=== PATIENT | female | born 1980 | race American Indian/Alaskan Native ===

== ENCOUNTER 2021-08-01 23:49 | Emergency (ER) | payer OTHER ==
--- NOTE | 2021-08-02 00:58 | Emergency Department Report ---
ED General Adult HPI - General Chief complaint: High BP Stated complaint: BLOOD PRESSURE Source: patient Mode of arrival: Ambulatory Limitations: No Limitations - History of Present Illness Initial comments: Patient is a 40-year-old -[place] female with a history of hypertension who presents to the ED with the persistently elevated blood pressure despite taking propranolol 5 mg daily especially in the last 2 days. Patient states that her blood pressure has been in the 150s over 100 and that she has also been experiencing intermittent headache, lightheadedness and left-sided chest pain. Patient states that she recently had an extensive work-up by her auger mill operator Dr. Quezada who performed echocardiography and stress test which were all unremarkable. Patient states that she used to take lisinopril-HCTZ 20 mg - 12.5 mg combination with amlodipine 10 mg daily but these medications were changed by her auger mill operator and she now only takes propranolol 5 mg daily. Patient states that despite this medication, her blood pressure continues to be poorly controlled. Patient denies dizziness, syncope, change in vision, nausea and vomiting, cough, palpitations, neck pain, back pain, fever and chills or dysphagia and dysphonia. MD Complaint: Elevated blood pressure, headache, lightheadedness and chest pain -: Sudden, week(s) (1) Location: head, chest Radiation: non-radiation Severity scale (0 -10): 2 Quality: aching, dull Consistency: intermittent Improves with: none Worsens with: none Associated Symptoms: denies other symptoms, chest pain, headaches. denies: confusion, cough, diaphoresis, loss of appetite, malaise, nausea/vomiting, rash, seizure, weakness, other Treatments Prior to Arrival: none - Related Data Previous Rx's Medication Instructions Recorded Last Taken Type Levothyroxine [Synthroid] 50 mcg PO QAM #30 tablet 08/02/21 Unknown Rx hydrALAZINE [Apresoline TAB] 25 mg PO DAILY #30 tab 08/02/21 Unknown Rx Allergies Allergy/AdvReac Type Severity Reaction Status Date / Time No Known Allergies Allergy Unverified 08/02/21 02:49 ED Review of Systems ROS: Stated complaint: BLOOD PRESSURE Other details as noted in HPI Constitutional: malaise, other (Elevated blood pressure). denies: chills, fever Eyes: denies: eye pain, eye discharge, vision change ENT: denies: ear pain, throat pain Respiratory: denies: cough, shortness of breath, wheezing Cardiovascular: chest pain (Mild chest pain), other (Lightheadedness). denies: palpitations Endocrine: no symptoms reported Gastrointestinal: denies: abdominal pain, nausea, vomiting, diarrhea Genitourinary: denies: urgency, dysuria, discharge Musculoskeletal: denies: back pain, joint swelling, arthralgia Skin: denies: rash, lesions Neurological: headache. denies: weakness, paresthesias Psychiatric: anxiety. denies: depression Hematological/Lymphatic: denies: easy bleeding, easy bruising ED Past Medical Hx - Past Medical History Previous Medical History?: Yes Hx Hypertension: Yes - Medications Home Medications: Home Medications Medication Instructions Recorded Confirmed Last Taken Type Levothyroxine [Synthroid] 50 mcg PO QAM #30 tablet 08/02/21 Unknown Rx hydrALAZINE [Apresoline TAB] 25 mg PO DAILY #30 tab 08/02/21 Unknown Rx ED Physical Exam - General Limitations: No Limitations General appearance: alert, in no apparent distress - Head Head exam: Present: atraumatic, normocephalic, normal inspection - Eye Eye exam: Present: normal appearance, PERRL, EOMI Pupils: Present: normal accommodation - ENT ENT exam: Present: normal exam, normal orophraynx, mucous membranes moist, TM's normal bilaterally, normal external ear exam - Neck Neck exam: Present: normal inspection, full ROM. Absent: tenderness - Respiratory Respiratory exam: Present: normal lung sounds bilaterally. Absent: respiratory distress, wheezes, rales, rhonchi, chest wall tenderness, accessory muscle use, decreased breath sounds, prolonged expiratory - Cardiovascular Cardiovascular Exam: Present: regular rate, normal rhythm, normal heart sounds. Absent: systolic murmur, diastolic murmur, rubs, gallop - GI/Abdominal GI/Abdominal exam: Present: soft, normal bowel sounds. Absent: tenderness, guarding, rebound, hyperactive bowel sounds - Extremities Exam Extremities exam: Present: normal inspection, full ROM, normal capillary refill. Absent: tenderness, pedal edema, joint swelling, calf tenderness - Back Exam Back exam: Present: normal inspection, full ROM. Absent: tenderness, CVA tenderness (R), CVA tenderness (L), muscle spasm, paraspinal tenderness, vertebral tenderness - Neurological Exam Neurological exam: Present: alert, oriented X3, CN II-XII intact, normal gait, reflexes normal - Psychiatric Psychiatric exam: Present: normal affect, normal mood, anxious - Skin Skin exam: Present: warm, dry, intact, normal color. Absent: rash ED Course Vital Signs 08/01/21 08/02/21 08/02/21 23:52 03:56 04:20 Temperature 98.5 F Pulse Rate 73 66 Respiratory 16 16 Rate Blood Pressure 158/99 153/101 152/101 O2 Sat by Pulse 100 98 Oximetry ED Medical Decision Making - Lab Data Result diagrams: 08/02/21 00:48 08/02/21 00:48 - EKG Data EKG shows normal: sinus rhythm Rate: bradycardia - EKG Data Interpretation: normal EKG 08/02/21 03:46 EKG shows sinus bradycardia with ventricular rate of 57 bpm and atrial premature complexes. No other acute abnormalities - Radiology Data Radiology results: report reviewed [facility] [address] [place] [address] XRay Report Signed Patient: JACOB COOK MR#: [id number] : 1980 Acct:[id number] Age/Sex: 40 / F ADM Date: 08/01/21 Loc: ED Attending Dr: Ordering Physician: JIM FREITAS Date of Service: 08/02/21 Procedure(s): XR chest 1V ap Accession Number(s): [id number] cc: JIM FREITAS Fluoro Time In Minutes: CHEST 1 VIEW 08/02/2021 12:17 AM INDICATION / CLINICAL INFORMATION: chest pain. COMPARISON: None available. FINDINGS: SUPPORT DEVICES: None. HEART / MEDIASTINUM: No significant abnormality. LUNGS / PLEURA: No significant pulmonary or pleural abnormality. No pneumothorax. ADDITIONAL FINDINGS: No significant additional findings. IMPRESSION: 1. No acute findings. Signer Name: Chevy Laureano MD Signed: 08/02/2021 1:21 AM Workstation Name: [id number] Transcribed By: ADDIE Dictated By: Chevy Laureano MD Electronically Authenticated By: Chevy Laureano MD Signed Date/Time: 08/02/21120 DD/ 0 TD/TT: [facility] [address] [place] [address] Cat Scan Report Signed Patient: JACOB COOK MR#: [id number] : 1980 A cct:[id number] Age/Sex: 40 / F ADM Date: 08/01/21 Loc: ED Attending Dr: Ordering Physician: JIM FREITAS Date of Service: 08/02/21 Procedure(s): CT angio chest Accession Number(s): [id number] cc: JIM FREITAS . CTA CHEST WITH CONTRAST INDICATION / CLINICAL INFORMATION: Chest pain, PE r/o. TECHNIQUE: Axial CT images were obtained through the chest after injection of 100 cc Omnipaque 350 IV contrast. 3 plane MIP and/or 3D reconstructions were produced. All CT scans at this location are performed using CT dose reduction for ALARA by means of automated exposure control. COMPARISON: None available. FINDINGS: PULMONARY EMBOLUS: None. THORACIC AORTA: No significant abnormality. HEART: No significant abnormality. CORONARY ARTERY CALCIFICATION: Absent -- None. MEDIASTINUM / RAHEEM: No significant abnormality. PLEURA: No pleural effusion. No pneumothorax. LUNGS: No acute air space or interstitial disease. ADDITIONAL FINDINGS: None. UPPER ABDOMEN: No acute findings. SKELETAL STRUCTURES: No significant osseous abnormality. IMPRESSION: 1. No CT evidence for pulmonary embolism. 2. No acute findings. Signer Name: Chevy Laureano MD Signed: 08/02/2021 3:24 AM Workstation Name: [id number] Transcribed By: ADDIE Dictated By: Chevy Laureano MD Electronically Authenticated By: Chevy Laureano MD Signed Date/Time: 08/02/21323 DD/ 3 TD/TT: - Medical Decision Making This is a 40-year-old -[place] female with a history of hypertension who presents to the ED with the persistently elevated blood pressure despite taking propranolol 5 mg daily especially in the last 2 days. Patient states that her blood pressure has been in the 150s over 100 and that she has also been experiencing intermittent headache, lightheadedness and left-sided chest pain. Patient states that she recently had an extensive work-up by her auger mill operator Dr. Quezada who performed echocardiography and stress test which were all unremarkable. Patient states that she used to take lisinopril-HCTZ 20 mg - 12.5 mg combination with amlodipine 10 mg daily but these medications were changed by her auger mill operator and she now only takes propranolol 5 mg daily. Patient states that despite this medication, her blood pressure continues to be poorly controlled. In the ED, patient is alert and oriented x3 and is not in any distress but anxious and hypertensive in triage. Chest x-ray showed no acute cardiopulmonary abnormalities or pneumonitis. Lab test results were reviewed and showed acute hypokalemia of 3.1 mmol/L, elevated TSH of 5.330 and elevated D-dimer of 550.62. The chest CTA showed no evidence of pulmonary embolism or any other cardiopulmonary abnormalities. The patient's heart score is 1 for hypertension. On reevaluation, patient felt better, hypertension improved and the patient was discharged home and advised to follow-up with her primary care physician in 5 to 7 days for reevaluation especially for repeat of her TSH levels with a view to having her start taking levothyroxine medications. Patient was also advised to follow-up with her auger mill operator for the evaluation in the next 7 to 10 days. - Differential Diagnosis Anxiety; ACS; PE; dehydration; dissection; pneumonia Critical care attestation.: If time is entered above; I have spent that time in minutes in the direct care of this critically ill patient, excluding procedure time. ED Disposition Clinical Impression: Uncontrolled hypertension, stage 1, Acute nonspecific chest pain with low risk of coronary artery disease, Intermittent lightheadedness Hypothyroidism Qualifiers: Hypothyroidism type: unspecified Qualified Code(s): E03.9 - Hypothyroidism, unspecified Disposition: 01 HOME / SELF CARE / HOMELESS Is pt being admited?: No Does the pt Need Aspirin: No Condition: Stable Instructions: Hypothyroidism, Nonspecific Chest Pain, Adult, [id number], Hypertension, Adult, [id number], Chest Pain (ED), Hypertension (ED) Additional Instructions: All lab test results were reviewed and are all nonactionable except for elevated TSH of 5.330 and mild hypokalemia of 3.1 mmol/L. Chest x-ray showed no acute cardiopulmonary abnormalities or pneumonitis. CTA chest showed no evidence of pulmonary embolism. Therefore continue taking the previously prescribed antihypertensive medication, and follow-up with the primary care physician in 5 to 7 days for reevaluation. Consider following up with the auger mill operator in 7 to 10 days for reevaluation. Return to the ED immediately if symptoms get worse. Prescriptions: hydrALAZINE [Apresoline TAB] 25 mg PO DAILY #30 tab Levothyroxine [Synthroid] 50 mcg PO QAM #30 tablet Referrals: JOAO QUEZADA MD [Staff Physician] - 7-10 days JERZY DANIEL MD [Staff Physician] - 3-5 Days Time of Disposition: 00:56 Print Language: SAMI
--- NOTE | 2021-08-02 01:26 | XRay Report ---
CHEST 1 VIEW 08/02/2021 12:17 AM INDICATION / CLINICAL INFORMATION: chest pain. COMPARISON: None available. FINDINGS: SUPPORT DEVICES: None. HEART / MEDIASTINUM: No significant abnormality. LUNGS / PLEURA: No significant pulmonary or pleural abnormality. No pneumothorax. ADDITIONAL FINDINGS: No significant additional findings. IMPRESSION: 1. No acute findings. Signer Name: Chevy Laureano MD Signed: 08/02/2021 1:21 AM Workstation Name: [id number]
[2021-08-02 01:45] LABS: Alanine Aminotransferase 8 units/L (7-56); Albumin 4.2 g/dL (3.9-5); BUN/Creatinine Ratio 11; Blood Urea Nitrogen 9 mg/dL (7-17); Calcium 8.8 mg/dL (8.4-10.2); Hemolysis Index 7
[2021-08-02 01:47] LABS: Basophils % (Auto) 0.4 % (0.0-1.8); Eosinophils # (Auto) 0.1 K/mm3 (0.0-0.4); Eosinophils % (Auto) 1.8 % (0.0-4.3); Hematocrit 31.9 % (30.3-42.9); Hemoglobin 10.5 gm/dl (10.1-14.3); Lymphocytes # (Auto) 2.2 K/mm3 (1.2-5.4); Lymphocytes % (Auto) 44.9 % (13.4-35.0); Mean Corpuscular HGB Conc 33 % (30-34); Mean Corpuscular Volume 85 fl (79-97); Monocytes # (Auto) 0.4 K/mm3 (0.0-0.8); Monocytes % (Auto) 8.6 % (0.0-7.3); Platelet Count 242 K/mm3 (140-440); Red Blood Count 3.76 M/mm3 (3.65-5.03)
--- NOTE | 2021-08-02 03:29 | Cat Scan Report ---
. CTA CHEST WITH CONTRAST INDICATION / CLINICAL INFORMATION: Chest pain, PE r/o. TECHNIQUE: Axial CT images were obtained through the chest after injection of 100 cc Omnipaque 350 IV contrast. 3 plane MIP and/or 3D reconstructions were produced. All CT scans at this location are per formed using CT dose reduction for ALARA by means of automated exposure control. COMPARISON: None available. FINDINGS: PULMONARY EMBOLUS: None. THORACIC AORTA: No significant abnormality. HEART: No significant abnormality. CORONARY ARTERY CALCIFICATION: Absent -- None. MEDIASTINUM / RAHEEM: No significant abnormality. PLEURA: No pleural effusion. No pneumothorax. LUNGS: No acute air space or interstitial disease. ADDITIONAL FINDINGS: None. UPPER ABDOMEN: No acute findings. SKELETAL STRUCTURES: No significant osseous abnormality. IMPRESSION: 1. No CT evidence for pulmonary embolism. 2. No acute findings. Signer Name: Chevy Laureano MD Signed: 08/02/2021 3:24 AM Workstation Name: [id number]
[2021-08-02] MEDS ORDERED: POTASSIUM CHLORIDE ER 20 MEQ TAB PO ONE (03:37)
[2021-08-02] MEDS ORDERED: hydrALAZINE 20 MG/1 ML INJ IV ONE (04:08)
[2021-08-02 04:54] VITALS: BP 134/80
--- NOTE | 2021-08-02 15:20 | Electrocardiograph Report ---
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 ARRHYTHMIA NSTW'S No previous ECG available for comparison Electronically Signed On 08-02-2021 15:20:01 EDT by Surjit Teresa
== END 2021-08-02 04:54 | disposition home or self-care (01) ==
LOC: ED 23:49
DX: I10 Essential (primary) hypertension (principal); I25.10 Atherosclerotic heart disease of native coronary artery without angina pectoris; R42 Dizziness and giddiness; E03.9 Hypothyroidism, unspecified; Z79.899 Other long term (current) drug therapy
CPT/HCPCS: 36415; 71045; 71275; 80053; 83880; 84443; 84481; 84484; 84703; 85025; 85379; 93005; 96374; 99284; J0360; Q9967

== ENCOUNTER 2021-09-28 20:05 | Emergency (ER) | payer OTHER ==
[2021-09-28 21:10] VITALS: BP 154/74
[2021-09-28] MEDS ORDERED: IBUPROFEN 600 MG TAB PO ONE (21:10)
== END 2021-09-29 02:40 | disposition left against medical advice (07) ==
LOC: ED 20:05
DX: U07.1 COVID-19 (principal); Z53.21 Procedure and treatment not carried out due to patient leaving prior to being seen by health care provider